=== PATIENT | female | born 1950 | race African-American/Black ===

== ENCOUNTER 2017-05-11 23:20 | Inpatient (IN) ==
[2017-05-12] MEDS ORDERED: ONDANSETRON 4 MG/2 ML VIAL IV STA (01:14)
[2017-05-12] MEDS ORDERED: fentaNYL 100 MCG/2 ML VIAL IV STA (01:14)
[2017-05-12] MEDS ORDERED: ONDANSETRON 4 MG/2 ML VIAL ONE ×2 (01:28→18:06)
[2017-05-12] MEDS ORDERED: fentaNYL 100 MCG/2 ML VIAL ONE ×2 (01:28→18:05)
[2017-05-12] MEDS ORDERED: fentaNYL 100 MCG/2 ML VIAL IV PRN (02:11)
[2017-05-12] MEDS: SODIUM CHLORIDE 0.45% 1,000 ML IV SCH ×2 (02:54→10:29)
[2017-05-12 07:41] LABS: Basophils % 0.1 % (0.0-0.8); Hematocrit 42.3 VOL% (35.7-47.0); Immature Granulocytes % 0.3 %; Immature Granulocytes Absolute 0.02 #; Lymphocytes # 2.1 10*3/uL (1.4-4.0); Lymphocytes % 27.2 % (21.3-54.2); Mean Corpuscular HGB Conc 33.1 GM/DL (32-36); Mean Corpuscular Hemoglobin 29 PG (27-34); Mean Corpuscular Volume 87.9 FL (87-102); Mean Platelet Volume 10.3 FL (9.6-12.0); Monocytes # 0.6 10*3/uL (0.11-0.8); Monocytes % 8.5 % (1.7-12.7); Neutrophils # 4.8 10*3/uL (1.4-7.4); Neutrophils % 63.9 % (38.7-73.9); Platelet Count 183 T/CUMM (130-400); Red Blood Count 4.81 MC/CUMM (3.8-5.5); Red Cell Distribution Width 14.3 % (9.3-17.3); White Blood Count 7.6 T/CUMM (4-12)
[2017-05-12 07:48] LABS: INR 0.9; Partial Thromboplastin Time 28.7 SECS (0-40)
[2017-05-12 08:15] LABS: Albumin 3.3 G/DL (3.4-5.0); Bilirubin,Total 0.6 MG/DL (0.2-1.0); Calcium 8.9 MG/DL (8.5-10.1); Osmolality,Calculated 279.3 MOS/KG (273-304); Potassium 4.2 MMOL/L (3.5-5.1); Total Protein 6.4 G/DL (6.4-8.3)
[2017-05-12] MEDS: PANTOPRAZOLE 40 MG VIAL IV SCH (08:26)
[2017-05-12] MEDS ORDERED: ENOXAPARIN 40 MG/0.4 ML SYRINGE SUBCUT SCH (09:00)
[2017-05-12] MEDS: MORPHINE 2 MG/1 ML SYRINGE IV PRN ×2 (09:05→12:58)
[2017-05-12] MEDS: ONDANSETRON 4 MG/2 ML VIAL IV PRN ×3 (09:13→21:22)
[2017-05-12] MEDS: DEXTROSE 5% NACL 0.45% 1,000 ML IV SCH ×2 (10:37→21:24)
[2017-05-12] MEDS ORDERED: LIDOCAINE 1%/EPI INJ 20 ML VIAL ONE (15:24)
[2017-05-12] MEDS ORDERED: BUPIVACAINE 0.25% 50 ML VIAL ONE (15:24)
[2017-05-12] MEDS: metroNIDAZOLE INJ 500 MG in PREMIX 1 EACH IV ONE (16:50)
[2017-05-12] MEDS ORDERED: ACETAMINOPHEN 325 MG TABLET PO PRN (17:44)
[2017-05-12 17:48] LABS: Apearance,Urine Slightly Hazy (Clear); Bilirubin,Urine Negative (Negative); Blood, Urine Negative (Negative); Glucose,Urine (UA) Negative (Negative); Ketones,Urine Negative (Negative); Mucus,Urine Occasional /LPF (Occasional); Nitrite,Urine Negative (Negative); Protein,Urine Negative; RBC,Urine 1 /HPF (0-4); Squamous Epithelial Cell,Urine Occasional /HPF (0-10); Urine Color Yellow (Yellow); Urine Specific Gravity 1.036 (1.001-1.035); Urine Urobilinogen < 2.0 EU/DL (0.2-1.0); WBC,Urine 1 /HPF (0-6)
[2017-05-12] MEDS ORDERED: MIDAZOLAM 2 MG/2 ML VIAL ONE (18:05)
[2017-05-12] MEDS ORDERED: SEVOFLURANE 1 UNIT/15 MINUTE INH ONE (18:05)
[2017-05-12] MEDS ORDERED: PROPOFOL 200 MG/20 ML VIAL IV ONE (18:05)
[2017-05-12] MEDS ORDERED: DEXAMETHASONE 10 MG/1 ML VIAL ONE (18:06)
[2017-05-12] MEDS ORDERED: ROCURONIUM 100 MG/10 ML VIAL IV ONE (18:06)
[2017-05-12] MEDS ORDERED: LACTATED RINGERS 3,000 ML IV ONE (18:06)
[2017-05-12] MEDS ORDERED: NEOSTIGMINE 10 MG/10 ML VIAL ONE (18:06)
[2017-05-12] MEDS ORDERED: KETOROLAC 30 MG/1 ML VIAL ONE (18:06)
[2017-05-12] MEDS ORDERED: GLYCOPYRROLATE 0.4 MG/2 ML VIAL ONE (18:06)
[2017-05-12] MEDS ORDERED: PROMETHAZINE 25 MG/1 ML VIAL ONE (18:06)
[2017-05-12] MEDS ORDERED: SUCCINYLCHOLINE 200 MG/10 ML VIAL ONE (18:06)
[2017-05-12 18:12] LABS: Hematocrit 44.6 VOL% (35.7-47.0)
[2017-05-12] MEDS: HYDROmorphone PCA 30 MG/30 ML SYRINGE IV SCH (21:25)
[2017-05-12] MEDS: metroNIDAZOLE INJ 500 MG in PREMIX 1 EACH IV SCH (23:24)
[2017-05-13] MEDS: DEXTROSE 5% NACL 0.45% 1,000 ML IV SCH ×3 (05:40→23:46)
[2017-05-13 06:57] LABS: Basophils % 0.1 % (0.0-0.8); Hematocrit 36.1 VOL% (35.7-47.0); Hemoglobin 11.8 GM/DL (12.0-16.0); Immature Granulocytes % 0.3 %; Immature Granulocytes Absolute 0.03 #; Lymphocytes # 1.1 10*3/uL (1.4-4.0); Mean Corpuscular HGB Conc 32.7 GM/DL (32-36); Mean Corpuscular Hemoglobin 29 PG (27-34); Mean Corpuscular Volume 89.6 FL (87-102); Mean Platelet Volume 10.2 FL (9.6-12.0); Monocytes # 0.7 10*3/uL (0.11-0.8); Neutrophils # 8.1 10*3/uL (1.4-7.4); Neutrophils % 81.6 % (38.7-73.9); Platelet Count 167 T/CUMM (130-400); Red Blood Count 4.03 MC/CUMM (3.8-5.5); Red Cell Distribution Width 14.5 % (9.3-17.3)
[2017-05-13 07:29] LABS: Calcium 8.1 MG/DL (8.5-10.1); Osmolality,Calculated 286.1 MOS/KG (273-304); Potassium 4.1 MMOL/L (3.5-5.1)
[2017-05-13] MEDS: metroNIDAZOLE INJ 500 MG in PREMIX 1 EACH IV SCH ×2 (09:49→15:23)
[2017-05-13] MEDS: ONDANSETRON 4 MG/2 ML VIAL IV PRN (09:49)
[2017-05-13] MEDS: PANTOPRAZOLE 40 MG VIAL IV SCH (09:50)
[2017-05-13] MEDS: metroNIDAZOLE INJ 500 MG in PREMIX 1 EACH IV ONE (09:51)
[2017-05-13] MEDS: ENOXAPARIN 40 MG/0.4 ML SYRINGE SUBCUT SCH (20:56)
[2017-05-13] MEDS: HYDROmorphone PCA 30 MG/30 ML SYRINGE IV SCH (23:45)
[2017-05-14] MEDS: DEXTROSE 5% NACL 0.45% 1,000 ML IV SCH ×4 (01:00→18:03)
[2017-05-14] MEDS: metroNIDAZOLE INJ 500 MG in PREMIX 1 EACH IV SCH ×3 (01:10→15:41)
[2017-05-14 07:13] LABS: Basophils % 0.3 % (0.0-0.8); Eosinophils % 0.5 % (0.00-10.9); Hematocrit 35.9 VOL% (35.7-47.0); Hemoglobin 11.4 GM/DL (12.0-16.0); Immature Granulocytes % 0.2 %; Immature Granulocytes Absolute 0.01 #; Lymphocytes # 1.5 10*3/uL (1.4-4.0); Lymphocytes % 23.6 % (21.3-54.2); Mean Corpuscular HGB Conc 31.8 GM/DL (32-36); Mean Corpuscular Hemoglobin 29 PG (27-34); Mean Corpuscular Volume 90.9 FL (87-102); Mean Platelet Volume 10.5 FL (9.6-12.0); Monocytes # 0.8 10*3/uL (0.11-0.8); Monocytes % 11.9 % (1.7-12.7); Neutrophils # 4.1 10*3/uL (1.4-7.4); Neutrophils % 63.5 % (38.7-73.9); Platelet Count 143 T/CUMM (130-400); Red Blood Count 3.95 MC/CUMM (3.8-5.5); Red Cell Distribution Width 14.6 % (9.3-17.3); White Blood Count 6.5 T/CUMM (4-12)
[2017-05-14 07:47] LABS: Calcium 7.9 MG/DL (8.5-10.1); Potassium 4.2 MMOL/L (3.5-5.1)
[2017-05-14] MEDS: PANTOPRAZOLE 40 MG VIAL IV SCH (09:03)
[2017-05-14] MEDS: HYDROmorphone PCA 30 MG/30 ML SYRINGE IV SCH (18:03)
[2017-05-14] MEDS: ENOXAPARIN 40 MG/0.4 ML SYRINGE SUBCUT SCH (22:21)
[2017-05-15] MEDS: DEXTROSE 5% NACL 0.45% 1,000 ML IV SCH ×3 (04:48→17:37)
[2017-05-15 04:58] LABS: Basophils % 0.2 % (0.0-0.8); Eosinophils # 0.1 10*3/uL (0.0-0.87); Eosinophils % 1.9 % (0.00-10.9); Hematocrit 35.8 VOL% (35.7-47.0); Hemoglobin 11.7 GM/DL (12.0-16.0); Immature Granulocytes % 0.3 %; Immature Granulocytes Absolute 0.02 #; Lymphocytes # 1.8 10*3/uL (1.4-4.0); Lymphocytes % 28.5 % (21.3-54.2); Mean Corpuscular HGB Conc 32.7 GM/DL (32-36); Mean Corpuscular Hemoglobin 29 PG (27-34); Mean Corpuscular Volume 89.5 FL (87-102); Mean Platelet Volume 10.6 FL (9.6-12.0); Monocytes # 0.6 10*3/uL (0.11-0.8); Monocytes % 10.3 % (1.7-12.7); Neutrophils # 3.7 10*3/uL (1.4-7.4); Neutrophils % 58.8 % (38.7-73.9); Platelet Count 155 T/CUMM (130-400); Red Cell Distribution Width 14.2 % (9.3-17.3); White Blood Count 6.2 T/CUMM (4-12)
[2017-05-15 05:26] LABS: Magnesium 1.9 MG/DL (1.8-2.4); Osmolality,Calculated 274.5 MOS/KG (273-304); Potassium 3.9 MMOL/L (3.5-5.1)
[2017-05-15] MEDS: PANTOPRAZOLE 40 MG VIAL IV SCH (08:04)
[2017-05-15] MEDS: HYDROmorphone 2 MG/1 ML VIAL IV PRN (09:18)
[2017-05-15] MEDS: ONDANSETRON 4 MG/2 ML VIAL IV PRN (13:53)
[2017-05-15] MEDS: METOCLOPRAMIDE 10 MG/2 ML VIAL IV SCH (17:37)
[2017-05-15] MEDS: ENOXAPARIN 40 MG/0.4 ML SYRINGE SUBCUT SCH (20:57)
[2017-05-16] MEDS: METOCLOPRAMIDE 10 MG/2 ML VIAL IV SCH ×5 (00:12→23:41)
[2017-05-16] MEDS: DEXTROSE 5% NACL 0.45% 1,000 ML IV SCH ×5 (00:18→17:33)
[2017-05-16] MEDS: HYDROmorphone 2 MG/1 ML VIAL IV PRN (00:19)
[2017-05-16] MEDS: PANTOPRAZOLE 40 MG VIAL IV SCH (08:52)
[2017-05-16] MEDS: ONDANSETRON 4 MG/2 ML VIAL IV PRN ×2 (18:59→23:38)
[2017-05-16] MEDS: ENOXAPARIN 40 MG/0.4 ML SYRINGE SUBCUT SCH (19:11)
[2017-05-17] MEDS: DEXTROSE 5% NACL 0.45% 1,000 ML IV SCH ×4 (01:54→17:37)
[2017-05-17] MEDS: ONDANSETRON 4 MG/2 ML VIAL IV PRN ×2 (05:07→08:41)
[2017-05-17] MEDS: METOCLOPRAMIDE 10 MG/2 ML VIAL IV SCH ×3 (05:10→17:37)
[2017-05-17] MEDS: PANTOPRAZOLE 40 MG VIAL IV SCH (08:41)
[2017-05-17 16:38] LABS: Basophils % 0.1 % (0.0-0.8); Hematocrit 38.3 VOL% (35.7-47.0); Hemoglobin 13.2 GM/DL (12.0-16.0); Immature Granulocytes % 0.7 %; Immature Granulocytes Absolute 0.05 #; Lymphocytes # 1.2 10*3/uL (1.4-4.0); Lymphocytes % 16.9 % (21.3-54.2); Mean Corpuscular HGB Conc 34.5 GM/DL (32-36); Mean Corpuscular Hemoglobin 29 PG (27-34); Mean Corpuscular Volume 84.5 FL (87-102); Mean Platelet Volume 9.9 FL (9.6-12.0); Monocytes # 0.6 10*3/uL (0.11-0.8); Monocytes % 8.6 % (1.7-12.7); Neutrophils # 5.4 10*3/uL (1.4-7.4); Neutrophils % 73.7 % (38.7-73.9); Platelet Count 206 T/CUMM (130-400); Red Blood Count 4.53 MC/CUMM (3.8-5.5); Red Cell Distribution Width 12.6 % (9.3-17.3); White Blood Count 7.4 T/CUMM (4-12)
[2017-05-17] MEDS: PROMETHAZINE 25 MG/1 ML VIAL IM PRN ×2 (16:47→20:57)
[2017-05-17 17:08] LABS: Calcium 8.3 MG/DL (8.5-10.1); Osmolality,Calculated 273.7 MOS/KG (273-304); Potassium 3.3 MMOL/L (3.5-5.1)
[2017-05-17] MEDS: ENOXAPARIN 40 MG/0.4 ML SYRINGE SUBCUT SCH (20:56)
[2017-05-18] MEDS: METOCLOPRAMIDE 10 MG/2 ML VIAL IV SCH ×3 (00:16→13:30)
[2017-05-18] MEDS: DEXTROSE 5% NACL 0.45% 1,000 ML IV SCH ×5 (01:08→18:54)
[2017-05-18 08:00] LABS: Basophils % 0.1 % (0.0-0.8); Eosinophils # 0.1 10*3/uL (0.0-0.87); Eosinophils % 0.7 % (0.00-10.9); Hemoglobin 12.8 GM/DL (12.0-16.0); Immature Granulocytes % 0.9 %; Immature Granulocytes Absolute 0.07 #; Lymphocytes # 1.9 10*3/uL (1.4-4.0); Lymphocytes % 24.3 % (21.3-54.2); Mean Corpuscular HGB Conc 33.7 GM/DL (32-36); Mean Corpuscular Hemoglobin 29 PG (27-34); Mean Corpuscular Volume 85.4 FL (87-102); Mean Platelet Volume 10.5 FL (9.6-12.0); Monocytes # 0.8 10*3/uL (0.11-0.8); Monocytes % 10.7 % (1.7-12.7); Neutrophils # 4.8 10*3/uL (1.4-7.4); Neutrophils % 63.3 % (38.7-73.9); Platelet Count 225 T/CUMM (130-400); Red Blood Count 4.45 MC/CUMM (3.8-5.5); White Blood Count 7.6 T/CUMM (4-12)
[2017-05-18] MEDS ORDERED: BISACODYL 10 MG SUPP RECTAL PRN (08:16)
[2017-05-18 08:42] LABS: Calcium 8.3 MG/DL (8.5-10.1); Osmolality,Calculated 278.3 MOS/KG (273-304); Potassium 3.3 MMOL/L (3.5-5.1)
[2017-05-18] MEDS: PANTOPRAZOLE 40 MG VIAL IV SCH (09:02)
[2017-05-18] MEDS: POTASSIUM CHLORIDE RIDER 10 MEQ in PREMIX 1 EACH IV PRN ×4 (15:09→22:05)
[2017-05-18] MEDS: ENOXAPARIN 40 MG/0.4 ML SYRINGE SUBCUT SCH (20:20)
[2017-05-19] MEDS: PROMETHAZINE 25 MG/1 ML VIAL IM PRN (00:09)
[2017-05-19] MEDS: DEXTROSE 5% NACL 0.45% 1,000 ML IV SCH (02:14)
[2017-05-19] MEDS ORDERED: POTASSIUM CHLORIDE INJ 20 MEQ in DEXTROSE 5% NACL 0.45% 1,000 ML IV SCH (09:00)
[2017-05-19 09:07] LABS: Calcium 8.4 MG/DL (8.5-10.1); Osmolality,Calculated 273.5 MOS/KG (273-304); Potassium 3.4 MMOL/L (3.5-5.1)
[2017-05-19] MEDS: PANTOPRAZOLE 40 MG VIAL IV SCH (10:20)
[2017-05-19] MEDS: DEXT 5% NACL 0.45% KCL 20 MEQ 20 MEQ/1,000 ML BAG IV SCH ×2 (10:22→18:42)
[2017-05-19] MEDS: METOCLOPRAMIDE 5 MG TABLET PO SCH ×3 (14:44→21:37)
[2017-05-19] MEDS: ENOXAPARIN 40 MG/0.4 ML SYRINGE SUBCUT SCH (21:37)
[2017-05-20] MEDS: DEXT 5% NACL 0.45% KCL 20 MEQ 20 MEQ/1,000 ML BAG IV SCH ×5 (02:56→19:13)
[2017-05-20 06:52] LABS: Basophils % 0.4 % (0.0-0.8); Eosinophils # 0.1 10*3/uL (0.0-0.87); Eosinophils % 2.2 % (0.00-10.9); Hemoglobin 11.8 GM/DL (12.0-16.0); Immature Granulocytes % 1.7 %; Immature Granulocytes Absolute 0.09 #; Lymphocytes # 1.9 10*3/uL (1.4-4.0); Mean Corpuscular HGB Conc 33.7 GM/DL (32-36); Mean Corpuscular Hemoglobin 29 PG (27-34); Mean Corpuscular Volume 86.2 FL (87-102); Mean Platelet Volume 9.6 FL (9.6-12.0); Monocytes # 0.6 10*3/uL (0.11-0.8); Monocytes % 11.8 % (1.7-12.7); Neutrophils # 2.6 10*3/uL (1.4-7.4); Neutrophils % 48.9 % (38.7-73.9); Platelet Count 246 T/CUMM (130-400); Red Blood Count 4.06 MC/CUMM (3.8-5.5); Red Cell Distribution Width 13.2 % (9.3-17.3); White Blood Count 5.3 T/CUMM (4-12)
[2017-05-20 07:20] LABS: Giant Platelets Few; Hypochromasia 1+; Lymphocytes 45 % (20-55); Ovalocytes Slight; Platelet Estimate Adequate; Segmented Neutrophils 40 % (50-85); Total Cells Counted 100
[2017-05-20 07:25] LABS: Calcium 8.2 MG/DL (8.5-10.1); Magnesium 1.9 MG/DL (1.8-2.4); Osmolality,Calculated 277.3 MOS/KG (273-304); Potassium 3.8 MMOL/L (3.5-5.1)
[2017-05-20] MEDS: PANTOPRAZOLE 40 MG VIAL IV SCH (09:12)
[2017-05-20] MEDS: METOCLOPRAMIDE 5 MG TABLET PO SCH ×4 (09:14→21:01)
[2017-05-20] MEDS: ALUMINUM/MAGNES/SIMETH MAX STR 30 ML UDCUP PO PRN (15:50)
[2017-05-20] MEDS: ENOXAPARIN 40 MG/0.4 ML SYRINGE SUBCUT SCH (20:42)
[2017-05-20] MEDS: HYDROmorphone 2 MG/1 ML VIAL IV PRN (20:43)
[2017-05-21] MEDS: DEXT 5% NACL 0.45% KCL 20 MEQ 20 MEQ/1,000 ML BAG IV SCH (02:53)
[2017-05-21] MEDS: PANTOPRAZOLE 40 MG VIAL IV SCH (09:16)
[2017-05-21] MEDS: METOCLOPRAMIDE 5 MG TABLET PO SCH ×4 (09:18→19:59)
[2017-05-21] MEDS: ALUMINUM/MAGNES/SIMETH MAX STR 30 ML UDCUP PO PRN (12:34)
[2017-05-21] MEDS: ENOXAPARIN 40 MG/0.4 ML SYRINGE SUBCUT SCH (20:00)
[2017-05-22 06:31] LABS: Basophils % 0.5 % (0.0-0.8); Eosinophils # 0.1 10*3/uL (0.0-0.87); Eosinophils % 2.5 % (0.00-10.9); Hematocrit 35.6 VOL% (35.7-47.0); Hemoglobin 12.1 GM/DL (12.0-16.0); Immature Granulocytes % 1.3 %; Immature Granulocytes Absolute 0.05 #; Lymphocytes # 1.5 10*3/uL (1.4-4.0); Lymphocytes % 37.5 % (21.3-54.2); Mean Corpuscular Hemoglobin 29 PG (27-34); Mean Corpuscular Volume 86.4 FL (87-102); Mean Platelet Volume 9.7 FL (9.6-12.0); Monocytes # 0.5 10*3/uL (0.11-0.8); Monocytes % 11.9 % (1.7-12.7); Neutrophils # 1.8 10*3/uL (1.4-7.4); Neutrophils % 46.3 % (38.7-73.9); Platelet Count 292 T/CUMM (130-400); Red Blood Count 4.12 MC/CUMM (3.8-5.5); Red Cell Distribution Width 13.4 % (9.3-17.3)
[2017-05-22 06:58] LABS: Eosinophils 2 % (0-10); Hypochromasia 2+; Lymphocytes 35 % (20-55); Microcytosis 1+; Platelet Estimate Adequate; Segmented Neutrophils 56 % (50-85); Total Cells Counted 100
[2017-05-22 07:11] LABS: Calcium 8.9 MG/DL (8.5-10.1); Magnesium 1.9 MG/DL (1.8-2.4); Osmolality,Calculated 272.5 MOS/KG (273-304); Potassium 4.1 MMOL/L (3.5-5.1)
[2017-05-22] MEDS: METOCLOPRAMIDE 5 MG TABLET PO SCH ×2 (08:17→11:52)
[2017-05-22] MEDS: PANTOPRAZOLE 40 MG VIAL IV SCH (08:18)
[2017-05-22 12:51] VITALS: BP 134/91
== END 2017-05-22 11:39 | disposition home health service (06) | DRG 330 ==
LOC: EDUNIT# → EDBD → N.ED 23:20 → SUATTDRO 05-12 00:39 → N.EDINP 05-12 00:39 → N.5E 05-12 01:33
PROVIDERS: ADMIT Internal Medicine; ATTEND Internal Medicine